=== PATIENT | female | born 1990 | race Caucasian/White ===

== ENCOUNTER 2017-09-28 06:55 | Emergency (ER) | payer OTHER ==
[2017-09-28 07:23] VITALS: TEMP 98.1; BMI 40.3
--- NOTE | 2017-09-28 07:27 | PDOC ---
Attending Attestation - HPI HPI: 09/28/17 08:26 The patient is a 26 year old female, with a significant past medical history of lapband (April 2016), who presents to the emergency department with 2 days of sharp, 5/10, constant , RUQ and epigastric pain. She denies change in her pain with eating. She state she feels food is getting stuck. She reports her last meal was yesterday. She denies experiencing these symptoms in the past. LMP: 2 weeks ago The patient denies chest pain, shortness of breath, headache and dizziness. The patient denies fever, chills, nausea, vomit, diarrhea and constipation. The patient denies dysuria, frequency, urgency and hematuria. Allergies: NKDA Social history: denies tobacco and ETOH Surgeon: Dr. Pardo - Medical Decision Making 09/28/17 08:28 Documentation prepared by Annia Martell, acting as medical transcription radiology for Toya Torres MD <Annia Martell - Last Filed: 09/28/17 08:26> - Resident Resident Name: Merline Ocampo - ED Attending Attestation I have performed the following: I have examined & evaluated the patient, The case was reviewed & discussed with the resident, I agree w/resident's findings & plan, Exceptions are as noted - Physicial Exam PE: GENERAL: Awake, alert, and fully oriented, in no acute distress HEAD: No signs of trauma EYES: PERRLA, EOMI, sclera anicteric, conjunctiva clear ENT: Auricles normal inspection, hearing grossly normal, nares patent, oropharynx clear without exudates. Moist mucosa NECK: Normal ROM, supple, no lymphadenopathy, JVD, or masses LUNGS: Breath sounds equal, clear to auscultation bilaterally. No wheezes, and no crackles HEART: Regular rate and rhythm, normal S1 and S2, no murmurs, rubs or gallops ABDOMEN: Soft, +upper abdominal tenderness, normoactive bowel sounds. No guarding, no rebound. No masses EXTREMITIES: Normal range of motion, no edema. No clubbing or cyanosis. No cords, erythema, or tenderness NEUROLOGICAL: Cranial nerves II through XII grossly intact. Normal speech, normal gait SKIN: Warm, Dry, normal turgor, no rashes or lesions noted. - Medical Decision Making Pt with upper abdominal tenderness since the placement of her lap band 2 years ago. She states she is becoming frustrated with it as it has been consistently painful but has not helped with weight loss. D/w Dr. Pardo, who requested CT and stated he would evaluate. <Toya Torres - Last Filed: 09/28/17 14:12>
--- NOTE | 2017-09-28 07:30 | PDOC ---
History of Present Illness - General Stated Complaint: ABD PAIN Time Seen by Provider: 09/28/17 07:18 History Source: Patient Exam Limitations: No Limitations - History of Present Illness Initial Comments: This is a 26 YOF with h/o morbid obesity s/p lap band placement with Dr. Pardo, and FLORI who p/w 5/10 constant sharp non-radiating epigastric and RUQ abdominal pain that is exacerbated with movement/repositioning and palpation. She denies any change in the pain after eating meals, but feels like food does get stuck in her stomach. She has not drank alcohol or ate any particularly greasy meals lately. She denies any fever, chills, nausea, vomiting, diarrhea, constipation, white/black/bloody stool, urinary symptoms, vaginal bleeding or discharge. Her LMP was two weeks ago and she denies any chance she may be . Her last PO intake (food or liquid) was last night at 8 pm. Past History - Past Medical History Allergies/Adverse Reactions: Allergies Allergy/AdvReac Type Severity Reaction Status Date / Time No Known Allergies Allergy Verified 05/11/16 15:01 Home Medications: Ambulatory Orders Bisoprolol Fumarate [Zebeta (Nf) -] 5 mg PO DAILY 05/11/16 Losartan 50Mg/Hctz 12.5MG [Hyzaar -] 1 tab PO DAILY 05/11/16 Famotidine [Pepcid] 20 mg PO BID #60 tablet 05/14/16 Oxycodone HCl/Acetaminophen [Percocet 5-325 mg Tablet] 1 - 2 tab PO Q6H #20 tab MDD 4 05/14/16 Anemia: No Asthma: No Cancer: No Cardiac Disorders: No CVA: No COPD: No CHF: No Dementia: No Diabetes: No GI Disorders: No Disorders: No HTN: Yes Hypercholesterolemia: No Liver Disease: No Seizures: No Thyroid Disease: No - Surgical History Abdominal Surgery: No Appendectomy: No Cardiac Surgery: No Cholecystectomy: No Lung Surgery: No Neurologic Surgery: No Orthopedic Surgery: No - Suicide/Smoking/Psychosocial Hx Smoking History: Former smoker Have you smoked in the past 12 months: No If you are a former smoker, when did you quit?: 2014 Hx Alcohol Use: Yes (SOCIALLY) Drug/Substance Use Hx: No Substance Use Type: Alcohol Hx Substance Use Treatment: No Review of Systems - Review of Systems Able to Perform ROS?: Yes Constitutional: No: Chills, Fever, Unexplained wgt Loss HEENTM: No: Nose Congestion, Throat Pain Respiratory: No: Cough, Shortness of Breath Cardiac (ROS): No: Chest Pain, Palpitations ABD/GI: Yes: Other (abdominal pain). No: Constipated, Diarrhea, Nausea, Vomiting : No: Burning, Dysuria Musculoskeletal: No: Back Pain, Neck Pain Integumentary: No: Bruising, Rash Neurological: No: Headache, Numbness, Tingling, Weakness, Dizziness Endocrine: No: Unexplained Weight Gain, Unexplained Weight Loss *Physical Exam - Physical Exam General Appearance: Yes: Nourished, Appropriately Dressed, Obese, Other ( pleasant adult female who appears comfortable unless she is actively repositioning herself, accompanied by mother at bedside, answering questions appropriately). No: Apparent Distress HEENT: positive: EOMI, [place], Normal Voice, Hearing Grossly Normal. negative: Scleral Icterus (R), Scleral Icterus (L), Nasal Congestion Neck: positive: Trachea midline, Supple. negative: Tender, Rigid Respiratory/Chest: positive: Lungs Clear, Normal Breath Sounds. negative: Respiratory Distress, Crackles, Rhonchi, Stridor, Wheezing Cardiovascular: positive: Regular Rhythm, Regular Rate. negative: Edema, JVD, Murmur Gastrointestinal/Abdominal: positive: Normal Bowel Sounds, Tender (moderate epigastric, RUQ, and mild umbilical ttp), Soft. negative: Organomegaly, Pulsatile Mass, Guarding Musculoskeletal: positive: Normal Inspection. negative: CVA Tenderness, Decreased Range of Motion, Vertebral Tenderness Extremity: positive: Normal Capillary Refill, Normal Inspection, Normal Range of Motion. negative: Tender, Cyanosis Integumentary: positive: Normal Color, Dry, Warm. negative: Erythema, Rash, Bruising Neurologic: positive: senior game developer II-XII NML intact (grossly), Fully Oriented, Alert, Normal Mood/Affect, Normal Response, Motor Strength 5/5. negative: Confused ED Treatment Course - LABORATORY CBC & Chemistry Diagram: 09/28/17 07:49 09/28/17 07:49 Medical Decision Making - Medical Decision Making 26 YOF with h/o lap band and morbid obesity who p/w 2 days sharp epigastric/RUQ abdominal pain. On exam VS wnl, patient with obesity, nontoxic appearing but epigastric and RUQ ttp with +Solvang sign, no McBurney's ttp. DDX IBNLT cholecystitis/choledocholithiasis, pancreatitis, internal hernia as complication of lap band, LL cholangitis, etc. Ordered is CBCD CMP Mg Phos lipase PT/INR PTT Type & Screen UA Cx hCG EKG US Gallbladder and Ofirmev. 09/28/17 10:22 Patient notes improved pain but still some residual discomfort. Lab work notable 09/28/17 10:[address] Pardo who will kindly come see the patient. Dr. Lopez did the patient's lap band. Will to CT abdomen/pelvis and Pepcid. 09/28/17 12:49 Patient reports no improvement with Pepcid. Abdomen/Pelvis CT negative for acute pathology. Page placed to Dr. Pardo, who is in the OR at this time. 09/28/17 14:29 Dr. Pardo at bedside evaluating the patient. He removes fluid from her lap band and they do discuss possibility of lap band removal next week. Patient wants to go home and follow up as outpatient with bariatric clinic. Repeat abdominal exam with minimal epigastric tenderness. Patient states somewhat improved. Return precautions are discussed. *DC/Admit/Observation/Transfer Diagnosis at time of Disposition: Abdominal pain Qualifiers: Abdominal location: epigastric Qualified Code(s): R10.13 - Epigastric pain - Discharge Dispostion Disposition: HOME Condition at time of disposition: Stable Admit: No - Referrals Referrals: Maci Heard [Primary Care Provider] - - Patient Instructions Additional Instructions: You were seen in the emergency room for abdominal pain. We did blood and urine tests, and there were no abnormalities we found that were concerning. We also did an ultrasound of the gallbladder, and a CT of the abdomen and pelvis, and there were no abnormalities that could explain your pain. We gave you Tylenol and IV Pepcid for the pain with partial relief. Dr. Pardo came to see you and evaluate you, and removed fluid from your lap band to loosen it. Please follow up with Dr. Pardo's group in clinic, or follow up with your primary doctor. Please return to the ER for any new or worsening symptoms like worsened pain, vomiting, inability to have bowel movements, or any other symptoms. Please take [id number] pain medications (Tylenol is probably best for your stomach lining) and antacids as needed. - Post Discharge Activity
[2017-09-28] MEDS ORDERED: SODIUM CHLORIDE 1,000 ML IV STA (07:38)
[2017-09-28] MEDS ORDERED: ACETAMINOPHEN 1000 MG/100 ML VIAL (NON FORMULARY) IVPB ONE (07:39)
[2017-09-28] MEDS ORDERED: ACETAMINOPHEN INJECTION 100 ML IVPB ONE (07:48)
[2017-09-28 08:16] LABS: URINE APPEARANCE TURBID; URINE BILIRUBIN NEGATIVE (NEGATIVE); URINE BLOOD 1+ (NEGATIVE); URINE COLOR AMBER; URINE GLUCOSE (UA) NEGATIVE (NEGATIVE); URINE KETONE NEGATIVE (NEGATIVE); URINE LEUK ESTERASE TRACE (NEGATIVE); URINE NITRITE NEGATIVE (NEGATIVE)
[2017-09-28 08:19] LABS: BASO % 0.5 % (0-2.0); EOS % 0.5 % (0-4.5); HEMATOCRIT 45.2 % (32.4-45.2); HEMOGLOBIN 15.4 GM/dL (10.7-15.3); LYMPH % 13.8 % (8-40); MCH 29.8 pg (25.7-33.7); MCHC 34.1 g/dl (32.0-36.0); MEAN CELL VOLUME 87.5 fl (80-96); MEAN PLT VOLUME 10.6 fl (7.5-11.1); MONO % 5.2 % (3.8-10.2); PLATELET COUNT 211 K/MM3 (134-434); RBC 5.16 M/mm3 (3.60-5.2); RDW 13.5 % (11.6-15.6); WHITE BLOOD COUNT 11.6 K/mm3 (4.0-10.0)
[2017-09-28 08:35] LABS: MAGNESIUM 2.3 mg/dL (1.8-2.4); PHOSPHOROUS 3.3 mg/dL (2.5-4.9)
[2017-09-28 08:36] LABS: ACTIVATED PTT 29.8 SECONDS (26.9-34.4); INR 1.15 (0.82-1.09)
[2017-09-28 08:51] LABS: URINE PROTEIN 1+ (NEGATIVE)
[2017-09-28 08:52] LABS: EPI CELLS MANY /HPF (FEW); URINE BACTERIA RARE /hpf (NONE SEEN); URINE MUCUS MODERATE
[2017-09-28 08:54] LABS: ALBUMIN 4.4 g/dl (3.4-5.0); ANION GAP 10 (8-16); BILIRUBIN,TOTAL 0.6 mg/dL (0.2-1.0); BLOOD UREA NITROGEN 10 mg/dL (7-18); CALCIUM 9.1 mg/dL (8.5-10.1); CHLORIDE 106 mmol/L (98-107); CO2 23 mmol/L (21-32); GLUCOSE,RANDOM 91 mg/dL (74-106); LIPASE 101 U/L (73-393); POTASSIUM 4.1 mmol/L (3.5-5.1); SGOT/AST 13 U/L (15-37); SGPT/ALT 17 U/L (12-78); SODIUM 139 mmol/L (136-145)
[2017-09-28 08:55] LABS: ALK PHOS 82 U/L (45-117)
[2017-09-28] MEDS ORDERED: FAMOTIDINE 20 MG/50 ML IVPB 20 MG/50 ML MG IVPB ONE (10:27)
--- NOTE | 2017-09-28 12:16 | EKG ---
Test Reason : Blood Pressure : / mmHG Vent. Rate : 083 BPM Atrial Rate : 083 BPM P-R Int : 154 ms QRS Dur : 080 ms QT Int : 378 ms P-R-T Axes : 050 042 035 degrees QTc Int : 444 ms POOR DATA QUALITY, INTERPRETATION MAY BE ADVERSELY AFFECTED NORMAL SINUS RHYTHM NORMAL ECG NO PREVIOUS ECGS AVAILABLE Confirmed by MD JONH, LORENE ([id number]) on 09/28/2017 12:16:16 PM Referred By: Confirmed By:LORENE BORJA MD
[2017-09-28 12:55] VITALS: BP 126/80; PULSE 70
--- NOTE | 2017-09-29 13:10 | CONSULT ---
Consult Consult Specialty:: Surgery Reason for Consultation:: Abdominal pain - History of Present Illness History of Present Illness: 26 female presents to ER on 09/28/17 for dysphagia, epigastric abdominal pain and nausea S/P Lap band 04/2016 Has had difficulty recently with tolerating foor Possible lap band slip/malfunction - History Source History Provided By: Patient Limitations to Obtaining History: No Limitations - Past Medical History Gastrointestinal: Yes: Other (Morbid obesity) ...LMP: 04/13/16 - Past Surgical History Past Surgical History: Yes: Bariatric Surgery (Lap band) - Alcohol/Substance Use Hx Alcohol Use: Yes (SOCIALLY) - Smoking History Smoking history: Former smoker Have you smoked in the past 12 months: No If you are a former smoker, when did you quit?: 2013 Home Medications - Allergies Allergies/Adverse Reactions: Allergies Allergy/AdvReac Type Severity Reaction Status Date / Time No Known Allergies Allergy Verified 05/11/16 15:01 - Home Medications Home Medications: Ambulatory Orders Bisoprolol Fumarate [Zebeta (Nf) -] 5 mg PO DAILY 05/11/16 Losartan 50Mg/Hctz 12.5MG [Hyzaar -] 1 tab PO DAILY 05/11/16 Famotidine [Pepcid] 20 mg PO BID #60 tablet 05/14/16 Oxycodone HCl/Acetaminophen [Percocet 5-325 mg Tablet] 1 - 2 tab PO Q6H #20 tab MDD 4 05/14/16 Family Disease History - Family Disease History Family History: Unremarkable Review of Systems - Review of Systems Constitutional: denies: Chills, Fever Neck: reports: No Symptoms Cardiovascular: reports: No Symptoms Respiratory: reports: No Symptoms Gastrointestinal: reports: Abdominal Pain, Dysphagia, Nausea Neurological: denies: Change in LOC Pain Intensity: 2 Physical Exam Vital Signs: Vital Signs Temperature 98.1 F 09/28/17 07:19 Pulse Rate 70 09/28/17 12:55 Respiratory Rate 18 09/28/17 12:55 Blood Pressure 126/80 09/28/17 12:55 O2 Sat by Pulse Oximetry (%) 97 09/28/17 12:55 Constitutional: Yes: Calm HENT: Yes: WNL Neck: Yes: WNL Cardiovascular: Yes: Regular Rate and Rhythm Respiratory: Yes: Regular Gastrointestinal: Yes: Soft, Tenderness, Epigastrium. No: Tenderness, Rebound Neurological: Yes: Alert, Oriented Labs: CBC, BMP 09/28/17 07:49 09/28/17 07:49 Problem List - Problems (1) Abdominal pain Code(s): R10.9 - UNSPECIFIED ABDOMINAL PAIN Qualifiers: Abdominal location: epigastric Qualified Code(s): R10.13 - Epigastric pain Assessment/Plan Epigastric abdominal pain, dysphagia S/P lap band 2016 Imaging WNL Band port aspirated All fluid removed 3.5ml removed Clears May eventually require band removal if persists
--- NOTE | 2017-09-30 08:15 | PDOC ---
Patient Follow-up (Call Back) - Post ED Follow - Up Condition at time of discharge: Stable Disposition at time of original discharge: HOME Reason for Call Back: Abnwl. Microbiology (Urine culture preliminary shows non- lactose fermenting GNB 10-20,000 CFU per mL. Patient was not symptomatic in the ER with UA trace leukoesterase and 7 white cells. Will await final report prior to treatment.)
--- NOTE | 2017-10-01 07:24 | PDOC ---
Patient Follow-up (Call Back) - Post ED Follow - Up Condition at time of discharge: Stable Disposition at time of original discharge: HOME Reason for Call Back: Abnwl. Microbiology (Left message; + urine culture. will need abx)
== END 2017-09-28 14:45 | disposition home or self-care (01) ==
LOC: JER 06:55
PROC: 3E033GC Introduction of Other Therapeutic Substance into Peripheral Vein, Percutaneous Approach (ICD-10-PCS; principal; 2017-09-28)
PROC: 3E033NZ Introduction of Analgesics, Hypnotics, Sedatives into Peripheral Vein, Percutaneous Approach (ICD-10-PCS; 2017-09-28)
DX: R10.13 Epigastric pain (principal); G47.33 Obstructive sleep apnea (adult) (pediatric); Z98.84 Bariatric surgery status
CPT/HCPCS: 36415; 74176-TC; 76705-TC; 80053; 81003; 81015; 83690; 83735; 84100; 84703; 85025; 85610; 85730; 86850; 86900; 86901; 87086; 87186; 93005; 93010; 99283-25; J0131; J7030